=== PATIENT | male | born 1970 | race Caucasian/White ===

== ENCOUNTER → 2017-06-17 | Outpatient (CLI) | payer OTHER ==
--- NOTE | 2017-06-18 12:31 | MR ---
EXAMINATION TYPE: MR lumbar spine wo con DATE OF EXAM: 06/17/2017 12:16 PM COMPARISON: NONE HISTORY: Low back pain Multiplanar, MultiSpin echo imaging of the lumbar spine was performed. L1-L2: Normal disc appearance without desiccation. No herniation, protrusion or disc bulging. No ca nal stenosis is present. Foramina are patent bilaterally. L2-L3: Normal disc appearance without desiccation. No herniation, protrusion or disc bulging. No ca nal stenosis is present. Foramina are patent bilaterally. L3-L4: Normal disc appearance without desiccation. No herniation, protrusion or disc bulging. No ca nal stenosis is present. Foramina are patent bilaterally. L4-L5: Mild to moderate disc desiccation noted. Posterocentral broad-based disc bulge mildly effaces the ventral thecal sac. No evidence for araseli herniation. No central stenosis or lateral recess steno sis. Foramina are patent bilaterally. L5-S1: Moderate disc desiccation noted. Right paracentral disc herniation with extruded component susana suring 9.5 x 9 mm. Right lateral recess stenosis and right foraminal encroachment. Edema of the exiti ng nerve root. Lumbar segments are intact. No paraspinal masses are identified. Conus medullaris has a normal appe arance. IMPRESSION: 1. Degenerative disc disease as discussed. 2. Extruded disc herniation paracentrally and to the right at L5-S1 with right lateral recess stenosi s, right foraminal encroachment and edema of the exiting nerve root.
== END | disposition home or self-care (01) ==
LOC: RADMRIMAIN 11:39
PROVIDERS: ATTEND Physical Medicine & Rehabilitation
DX: M48.07 Spinal stenosis, lumbosacral region (principal); M51.16 Intervertebral disc disorders with radiculopathy, lumbar region
CPT/HCPCS: 72148

== ENCOUNTER → 2020-12-15 | Outpatient (CLI) | payer OTHER ==
--- NOTE | 2020-12-15 16:26 | MR ---
MRI CERVICAL SPINE: CLINICAL HISTORY: Cervical region spondylosis and radiculopathy. Neck pain for 1.5 months per patient . TECHNIQUE: Multiplanar, multisequence imaging of the cervical spine is performed without IV contrast. COMPARISON: None. FINDINGS: Sagittal images of the cervical spine show the craniocervical junction to appear within nor mal limits. The cervical and upper thoracic spinal cord is normal in course, caliber, and signal. V ertebral alignment is anatomic. The vertebral body and intravertebral disk heights are normal. The bone marrow signal intensity is within normal limits. Axial images show C2-C3 level to appear within normal limits. Axial images at C3-C4 level show focal right lobulated paracentral disc protrusion greater on the rig ht effacing bilateral anterolateral thecal sac and causing moderate right along with [id number]-lk-krbcylal left-sided neural foraminal narrowing. Axial images at C4-C5 level appear within normal limits. Axial images at C5-C6 levels with broad-based posterior disc protrusion effacing anterior thecal sac with uncovertebral facet degenerative changes causing [id number] bilateral neural foraminal jamal rowing. Axial images at C6-C7 levels from broad-based left paracentral disc protrusion effacing ventral theca l sac with uncovertebral facet degenerative changes causing moderate to severe bilateral neural migdalia inal narrowing. Axial images at C7-T1 levels appear within normal limits. IMPRESSION: Multilevel degenerative changes C3-C4, C5-C6, and C6-C7 levels as detailed above.
== END ==
LOC: RADMRIMAIN 07:48
PROVIDERS: ATTEND Orthopaedic Surgery Orthopaedic Surgery of the Spine
DX: M50.123 Cervical disc disorder at C6-C7 level with radiculopathy (principal); M47.22 Other spondylosis with radiculopathy, cervical region; M99.71 Connective tissue and disc stenosis of intervertebral foramina of cervical region
CPT/HCPCS: 72141

== ENCOUNTER → 2021-01-08 | Outpatient (CLI) | payer OTHER ==
--- NOTE | 2021-01-08 08:07 | MR ---
EXAMINATION TYPE: MR thoracic spine wo con DATE OF EXAM: 01/08/2021 COMPARISON: NONE HISTORY: Pain in T-spine TECHNIQUE: Multiplanar, multisequence imaging of thoracic spine is performed without contrast FINDINGS: Spinal cord shows normal course, caliber, and signal as it courses the thoracic spine. Blaze tebral body heights and alignment are satisfactory. Multilevel disc desiccation and interspace height s are maintained. Sagittal images show multilevel posterior disc herniation effacing the anterior the black sac with largest herniations noted at T4-T5 and T7-T8 level sagittal image 9 along with T9-T10 le gabriele sagittal image 8. Smaller posterior disc herniations are present at T3-T4 and T6-T7 level sagitta l image 9. Bone marrow signal intensity is maintained. Mild multilevel anterior spurring. Review of the axial images confirm small central disc protrusion effacing anterior thecal sac at T3- T4 level image 12 series 701. There is slightly more prominent central disc protrusion effacing the anterior thecal sac causing ant erior ventral spinal canal effacement at T4-T5 level on axial image 9. There is a larger right paracentral/foraminal disc protrusion at T5-T6 level effacing anterolateral t hecal sac and causing severe right-sided neural foraminal narrowing abutting right anterior aspect sp inal cord on image 5. There is broad-based right paracentral disc protrusion effacing anterolateral thecal sac causing spin al cord ventral surface flattening at T6-T7 level axial image 2. Axial images at T7-T8 level show right paracentral disc protrusion effacing anterolateral thecal sac on image 18 series 601. There is left paracentral disc protrusion effacing the anterolateral thecal sac at T9-T10 level axial image 11 corresponding to sagittal images. Visualized thorax and upper abdomen are otherwise unremarkable. IMPRESSION: Multilevel disc herniations and degenerative changes in the thoracic spine as detailed ab ove
== END | disposition home or self-care (01) ==
LOC: RADMRIMAIN 06:57
PROVIDERS: ATTEND Orthopaedic Surgery Orthopaedic Surgery of the Spine
DX: M51.24 Other intervertebral disc displacement, thoracic region (principal); M99.72 Connective tissue and disc stenosis of intervertebral foramina of thoracic region
CPT/HCPCS: 72146

== ENCOUNTER → 2023-05-09 | Outpatient (CLI) | payer OTHER ==
[2023-05-09 12:00] LABS: Basophils # (A) 0.16 X 10*3/uL (0.00-0.10); Basophils % (A) 2.3 %; Eosinophils # (A) 0.24 X 10*3/uL (0.04-0.35); Eosinophils % (A) 3.4 %; HCT 43.5 % (39.6-50.0); HGB 14.6 d/dL (13.0-17.0); Lymphocytes # (A) 3.23 X 10*3/uL (0.90-5.00); Lymphocytes % (A) 45.8 %; MCH 30.7 pg (27.0-32.0); MCHC 33.6 d/dL (32.0-37.0); MCV 91.6 FL (80.0-97.0); Mean Platelet Volume 9.4 FL (9.5-12.2); Monocytes # (A) 0.74 X 10*3/uL (0.20-1.00); Monocytes % (A) 10.5 %; NRBC Per 100 WBC 0 X 10*3/uL (0.00-0.01); Neutrophils # (A) 2.68 X 10*3/uL (1.80-7.70); Neutrophils % (A) 37.9 %; Platelet Count 302 X 10*3/uL (140-440); RBC 4.75 X 10*6/uL (4.40-5.60); RDW 13.6 % (11.5-14.5); WBC 7.06 X 10*3/uL (4.50-10.00)
[2023-05-09 12:18] LABS: Hepatitis C IgG Antibody Nonreactive
[2023-05-09 12:25] LABS: ALT 27 U/L (10-49); AST 27 U/L (14-35); Albumin/Globulin Ratio 1.54 Ratio (1.60-3.17); Alkaline Phosphatase 55 U/L (41-126); Blood Urea Nitrogen 15.3 mg/dL (9.0-27.0); Calcium 9.1 mg/dL (8.7-10.3); Carbon Dioxide 27.2 mmol/L (21.6-31.8); Chloride 106 mmol/L (96-109); Globulin 2.6 d/dL (1.6-3.3); Glucose 139 mg/dL (70-110); Potassium 4.8 mmol/L (3.5-5.5); Sodium 143 mmol/L (135-145); Total Bilirubin 0.3 mg/dL (0.3-1.2); Total Protein 6.6 d/dL (6.2-8.2)
[2023-05-09 12:31] LABS: Erythrocyte Sedimentation Rate 12 mm/Hr (0-20)
[2023-05-09 14:24] LABS: C Reactive Protein <0.30 mg/dL (0.00-0.80)
== END | disposition home or self-care (01) ==
LOC: LABWHC1 05-08 16:30
PROVIDERS: ATTEND Internal Medicine Rheumatology
DX: E10.59 Type 1 diabetes mellitus with other circulatory complications (principal); M06.9 Rheumatoid arthritis, unspecified; M25.50 Pain in unspecified joint
CPT/HCPCS: 36415; 80053; 82306; 82746; 82747; 82955; 83036; 84153; 84443; 85025; 85652; 86140; 86480; 86706; 86803

== ENCOUNTER → 2023-09-08 | Outpatient (CLI) | payer OTHER ==
--- NOTE | 2023-09-08 21:36 | MR ---
EXAMINATION TYPE: MR brain wo/w con DATE OF EXAM: 09/08/2023 8:28 PM CLINICAL INDICATION:Male, 53 years old with history of H91.92 hearing loss, Migraines, Left side hear ing loss, dizziness/lightheadedness COMPARISON: None TECHNIQUE: Multi planar, multi sequence imaging was performed through the brain including: T1, T2, In version recovery, susceptibility weighted imaging and gradient echo imaging and Diffusion weighted im aging. The patient was then given intravenous contrast and multi planar, T1 fat-saturation images wer e obtained. IV Contrast: 11.5 cc Gadavist FINDINGS: Mild cerebral atrophy with proportional dilation of ventricular system. Diffusion-weighted imaging s hows no evidence of restricted diffusion to suggest acute/subacute infarct. Intracranial arterial jorge w voids are maintained. Midline structures show no abnormality. Minimal scattered foci of high T2 sig nal intensity are seen within the periventricular white matter. The susceptibility weighted images do not reveal any evidence for micro-hemorrhage. After administration of gadolinium, no abnormal enhanc ement is seen. The left temporal bone and 7th and 8th cranial nerves are grossly unremarkable. The bone marrow signal is within normal limits. Paranasal sinuses and mastoid air cells: Mild scattered paranasal sinus disease. Visualized orbits: Right aphakia. The left globe is intact. IMPRESSION: 1. No evidence of intracranial mass, acute/subacute infarct, or abnormal enhancement. 2. Minimal nonspecific white matter changes, likely related to small vessel ischemic disease.
== END | disposition home or self-care (01) ==
LOC: RADMRIMAIN 19:45
PROVIDERS: ATTEND Family Medicine
DX: G93.89 Other specified disorders of brain (principal); H91.92 Unspecified hearing loss, left ear
CPT/HCPCS: 70553; A9585

== ENCOUNTER → 2023-12-04 | Outpatient (CLI) | payer OTHER ==
--- NOTE | 2023-12-04 12:54 | NM ---
EXAMINATION TYPE: NM stress cardiolite complete DATE OF EXAM: 12/04/2023 COMPARISON: NONE CLINICAL INDICATION: Male, 53 years old with history of R07.89 CHEST PAIN; TECHNIQUE: After the intravenous administration of 10.36 mCi Tc 99m Sestamibi - Rest images obtained 66 minutes post injection. The patient exercised using a HENRI protocol and 1 minute prior to peak exercise was injected with 24.8 mCi Tc 99m Sestamibi - Stress images obtained 50 minutes post inject ion. FINDINGS: Targeted heart rate (143 BPM) was achieved during performance of the study (157 BPM achieved with tot al exercise time 9 minutes). Review of stress and rest SPECT images demonstrates an area reversibilit y along the anterior mid to basal wall. However, this is not corroborated on polar maps. Gated analys is shows normal wall motion but with an estimated left ventricular ejection fraction of 45 %. TID ca lculated at 0.93, within normal limits. IMPRESSION: Consider further evaluation as the LVEF is estimated at 45% and there is a questionable area of rever sibility along the mid to basal anterior wall (though not corroborated on Polar maps).
--- NOTE | 2023-12-04 13:24 | CA ---
Exercise Nuclear Stress Test Report Name: Orlando Scherer Exam Date: 12/04/2023 10:14 Exam Location: [facility] Ht (in): 77 Wt (lb): 250 BSA: 2.46 Ordering Phys: Mary Hdez DO Referring Phys: DUYEN Technologist: Jesus Alberto Wilkerson Age: 53 Gender: M : 1970 Procedure CPT: Indications: R07.89 chest pain ICD-10 Codes: Patient History: CHEST PAIN, PALPITATIONS, HTN, DIABETES, FORMER SMOKER Medications: LOSARTAN,,, Meds past 24 hrs: Pretest Chest Pain: STRESS TEST Bam Protocol Exercise Duration (min:sec): 09:[address] Depressions (mm): Angina Score: Dawn Score: Resting HR (bpm): 65 Peak HR (bpm): 157 Resting BP (mmHg): 144 / 84 Peak BP (mmHg): 213 / 74 MPHR: 168 Target HR: 143 % MPHR: 93 METS: 10.3 Total Dose: Peak Dose: Atropine: Double Product: 34581 BP Response: Stress Termination: TARGET HR REACHED/MAX EXERTION Stress Symptoms: NO SYMPTOMS Stress Summary: ECG ANALYSIS Resting ECG: Stress ECG: CONCLUSIONS Excellent exercise tolerance Abnormal EKG in response to exercise Dr. Eulogio Robins MD (Electronically Signed) Final Date: 04 December 2023 13:24
== END | disposition home or self-care (01) ==
LOC: RADNMMAIN 08:01
PROVIDERS: ATTEND Family Medicine
DX: R94.31 Abnormal electrocardiogram [ECG] [EKG] (principal); I11.9 Hypertensive heart disease without heart failure; R07.89 Other chest pain; R53.83 Other fatigue; E11.40 Type 2 diabetes mellitus with diabetic neuropathy, unspecified; R00.2 Palpitations; Z87.891 Personal history of nicotine dependence
CPT/HCPCS: 93017; 78452; A9500

== ENCOUNTER → 2023-12-04 | Outpatient (CLI) | payer OTHER ==
--- NOTE | 2023-12-04 11:39 | CA ---
Transthoracic Echo Report Name: Orlando Scherer Age: 53 Gender: M : 1970 Exam Date: 12/04/2023 10:58 Exam Location: [facility] Ht (in): 77 Wt (lb): 250 Ordering Physician: Mary Hdez DO Attending/Referring Phys: Mary Hdez DO [employer] P[employer] Debbie Leal RCS Procedure CPT: Indications: R07.89 Atypical Chest Pain Cardiac Hx: Technical Quality: Fair Contrast 1: Total Dose (mL): Contrast 2: Total Dose (mL): MEASUREMENTS (Male / Female) Normal Values 2D ECHO LV Diastolic Diameter PLAX 5.0 cm 4.2 - 5.9 / 3.9 - 5.3 cm LV Systolic Diameter PLAX 3.6 cm IVS Diastolic Thickness 1.4 cm 0.6 - 1.0 / 0.6 - 0.9 cm LVPW Diastolic Thickness 1.1 cm 0.6 - 1.0 / 0.6 - 0.9 cm LV Relative Wall Thickness 0.5 RV Internal Dim ED PLAX 3.3 cm LVOT Diameter 2.4 cm LV Diastolic Volume MOD BP 173.7 cm??? 67 - 155 / 56 - 104 cm??? LV Systolic Volume MOD BP 85.1 cm??? 22 - 58 / 19 - 49 cm??? LV Ejection Fraction MOD BP 51.0 % >= 55 % LV Cardiac Index MOD BP 2444.8 cm???/min???m??? LV Diastolic Volume MOD 4C 182.0 cm??? LV Systolic Volume MOD 4C 92.7 cm??? LV Ejection Fraction MOD 4C 49.0 % LV Cardiac Index MOD 4C 2461.5 cm???/min???m??? LV Diastolic Length 4C 9.7 cm LV Systolic Length 4C 8.2 cm LV Diastolic Volume MOD 2C 156.4 cm??? LV Systolic Volume MOD 2C 76.1 cm??? LV Ejection Fraction MOD 2C 51.3 % LV Cardiac Index MOD 2C 2215.1 cm???/min???m??? LV Diastolic Length 2C 9.1 cm LV Systolic Length 2C 7.9 cm LA Volume 59.2 cm??? 18 - 58 / 22 - 52 cm??? LA Volume Index 23.6 cm???/m??? 16 - 28 cm???/m??? Ascending Aorta Diameter 3.3 cm DOPPLER AV Peak Velocity 129.9 cm/s AV Peak Gradient 6.8 mmHg AV Mean Velocity 86.4 cm/s AV Mean Gradient 3.4 mmHg AV Velocity Time Integral 24.5 cm LVOT Peak Velocity 94.4 cm/s LVOT Peak Gradient 3.6 mmHg LVOT Velocity Time Integral 20.5 cm LVOT Stroke Volume 93.4 cm??? LVOT Stroke Volume Index 38.0 ml/m??? LVOT Cardiac Index 2575.3 cm???/min???m??? AV Area Cont Eq vti 3.8 cm??? AV Area Cont Eq pk 3.3 cm??? Mitral E Point Velocity 53.8 cm/s Mitral A Point Velocity 53.1 cm/s Mitral E to A Ratio 1.0 MV Deceleration Time 222.7 ms MV E' Velocity 6.6 cm/s Mitral E to MV E' Ratio 8.1 PV Peak Velocity 86.1 cm/s PV Peak Gradient 3.0 mmHg FINDINGS Left Ventricle Left ventricular ejection fraction is estimated at 50-55 %. Mildly increased septal wall thickness. Mildly increased left ventricular diastolic volume. No obvious regional wall motion abnormalities. Right Ventricle Borderline enlarged right ventricular dilatation. Unable to determine right ventricular systolic function. Right Atrium Normal right atrial size. Left Atrium Mildly increased left atrial volume. Mitral Valve Structurally normal mitral valve. No mitral stenosis, regurgitation or prolapse. Aortic Valve Trileaflet aortic valve. No aortic stenosis. No aortic regurgitation. Tricuspid Valve Structurally normal tricuspid valve. No tricuspid stenosis. Trace tricuspid regurgitation. Pulmonic Valve Structurally normal pulmonic valve. Trace pulmonic regurgitation. No pulmonic stenosis. Pericardium No pericardial effusion. Aorta Normal size aortic root and proximal ascending aorta. CONCLUSIONS Low-normal LV systolic function was EF at 50% Previewed by: Dr. Eulogio Robins MD (Electronically Signed) Final Date: 04 December 2023 11:38
== END | disposition home or self-care (01) ==
LOC: RADECHMAIN 08:06
PROVIDERS: ATTEND Family Medicine
DX: R07.89 Other chest pain (principal)
CPT/HCPCS: 93306

== ENCOUNTER 2024-01-01 07:24 | Day surgery (SDC) | payer OTHER ==
[2023-12-28 12:22] VITALS: BMI 29.5
[~2024-01-01 07:24] MED LIST: ALPRAZolam 0.25 MG TAB PO PRN; ASPIRIN 325 MG TAB PO STA; ATORVASTATIN 80 MG TAB PO STA; HEPARIN SODIUM,PORCINE (1 ML) 2,500 UNIT in SODIUM CHLORIDE 0.9% 250 ML IRRIGATION PRN; HEPARIN SODIUM,PORCINE 10,000 UNIT in SODIUM CHLORIDE 0.9% 1,000 ML IRRIGATION PRN; NITROGLYCERIN SL TABS 0.4 MG TAB SUBLINGUAL PRN; SODIUM CHLORIDE 0.9% 1,000 ML in EMPTY BAG 1 BAG IV SCH
[2024-01-01] MEDS: SODIUM CHLORIDE 0.9% 1,000 ML IV ONE (07:30)
[2024-01-01 07:51] LABS: Glucose,Whole Blood 101 mg/dL (70-110)
[2024-01-01] MEDS: ALPRAZolam 0.5 MG TAB PO PRN (07:56)
[2024-01-01 08:01] LABS: Basophils # (A) 0.1 k/uL (0-0.2); Basophils % (A) 2 %; Eosinophils # (A) 0.2 k/uL (0-0.7); Eosinophils % (A) 3 %; HCT 45.5 % (39.0-53.0); HGB 15.6 gm/dL (13.0-17.5); Lymphocytes # (A) 2.5 k/uL (1.0-4.8); Lymphocytes % (A) 33 %; MCH 31.9 pg (25.0-35.0); MCHC 34.2 g/dL (31.0-37.0); MCV 93.1 fL (80.0-100.0); Mean Platelet Volume 6.8; Monocytes # (A) 0.7 k/uL (0-1.0); Monocytes % (A) 9 %; Neutrophils # (A) 3.9 k/uL (1.3-7.7); Neutrophils % (A) 51 %; Platelet Count 312 k/uL (150-450); RBC 4.89 m/uL (4.30-5.90); RDW 13.2 % (11.5-15.5); WBC 7.7 k/uL (3.8-10.6)
[2024-01-01 08:02] VITALS: TEMP 98
[2024-01-01 08:28] LABS: African American GFR (CKD) >90 (>60 ml/min/1.73 sqM); Anion Gap 10 mmol/L; Blood Urea Nitrogen 13 mg/dL (9-20); Calcium 8.9 mg/dL (8.4-10.2); Carbon Dioxide 23 mmol/L (22-30); Chloride 105 mmol/L (98-107); Glucose 106 mg/dL (74-99); Non-African American GFR(CKD) >90 (>60 ml/min/1.73 sqM); Potassium 3.9 mmol/L (3.5-5.1); Sodium 138 mmol/L (137-145)
[2024-01-01] MEDS ORDERED: HEPARIN SODIUM 1,000 UN/ML (10ML VL) ONE (08:42)
[2024-01-01] MEDS ORDERED: VERAPAMIL 2.5 MG/ML 2 ML AMP ONE (08:42)
[2024-01-01] MEDS ORDERED: LIDOCAINE 1% INJ 10MG/ML (20 ML MDV) ONE (08:42)
[2024-01-01] MEDS ORDERED: fentaNYL (PF) 50 MCG/ML 2 ML AMP ONE (08:58)
[2024-01-01] MEDS: MIDAZOLAM 2 MG/2 ML VIAL IVP ONE (09:05)
[2024-01-01] MEDS: fentaNYL (PF) 50 MCG/ML 2 ML AMP IVP ONE (09:05)
[2024-01-01] MEDS: LIDOCAINE 1% INJ 10MG/ML (20 ML MDV) SQ ONE (09:07)
[2024-01-01] MEDS: VERAPAMIL SYRINGE (5 MG/10 ML) INTRAARTER ONE (09:10)
[2024-01-01] MEDS: HEPARIN SODIUM 1,000 UN/ML (10ML VL) IVP ONE (09:16)
[2024-01-01] MEDS: IOPAMIDOL-370 100ML BTL INJ ONE (09:24)
[2024-01-01] MEDS ORDERED: RX INFO: IV CONTRAST WAS GIVEN 1 EACH MISC MISCELLANE PRN (09:31)
--- NOTE | 2024-01-01 09:31 | P.CARDCATH ---
Date of Procedure: 01/01/24 Description of Procedure: DIAGNOSTIC CORONARY ANGIOGRAPHY and LEFT HEART CATH REPORT PROCEDURES PERFORMED: Left heart catheterization Selective coronary angiography Moderate conscious sedation 15 mins [Ultrasound assisted] Right radial access INDICATION: [Unstable angina] 53-year-old patient presented to cardiology clinic because of substernal chest pain. On initial evaluation he was noticed to have elevated blood pressure for which we started him on antihypertensives. We offered him noninvasive testing with stress test and CT angiogram. Patient chose for CT angiogram to be done and be scheduled at [facility]. Patient then called the clinic again because of recurrent substernal chest pain and he is very anxious and he would like to have a heart cath instead of CT angiogram. Because of his ongoing substernal chest pain which was 3-4 times per day, had typical description getting worse with activity and crescendo nature of chest pain, he was scheduled for heart catheterization on outpatient basis. CONSENT: I have explained the procedural steps of above-mentioned procedures in layman's terms to the patient. I discussed the risks (including but not limited to stroke, emergent vascular or cardiac surgery or ), benefits and alternative therapies for the above-mentioned procedure. I discussed the risks of sedation/analgesia and blood product administration (if indicated). The patient has indicated understanding and acceptance of these risks. Conscious Sedation: Patient's ECG, heart rate, blood pressure, pulse oximetry were monitored throughout the duration of procedure under my direct supervision. 3 mg Versed and 75 mg Fentanyl were used for induction of moderate conscious sedation. Total duration of moderate concious sedation 15 minutes. PROCEDURE: After explaining the risks, benefits and alternatives of the above mentioned procedures in detail to the patient, informed consent was obtained. Patient was taken to the catheterization lab, prepped and draped in usual sterile fashion using universal precuations. Barbow and ekta test were performed to confirm adequate perfusion to fingers. Ultrasound was used to identify the radial artery. 1% lidocaine was infiltrated over the right radial artery. A 6-[place] Ze[place]ander sheath was placed and secured in the [facility] radial artery using modified Seldinger technique. The sheath was flushed and 5 mg verapamil was administered intra-arterially. J tipped wire was advanced under fluoroscopic guidance. Once the wire tip reached aortic root 6000 units of IV heparin was given. Over the wire JR4 diagnostic catheter was advanced. The wire in place the catheter was manipulated to cross the aortic valve and entered into LV under fluoroscopy guidance. The wire was removed and the catheter was flushed. LV pressures were obtained and pullback was performed under fluoroscopy. Catheter was manipulated to selectively engage the right coronary ostium. Right coronary angiography was performed in different angiographic projections. The JR4 diagnostic catheter was exchanged for a JL 4 diagnostic catheter over the J-wire. The wire was removed, catheter was flushed and manipulated under fluoroscopy to selectively engaged the left coronary ostium. Left coronary angioplasty was performed in different angiographic projections. Catheter was removed over the wire. Radial sheath was flushed. The right radial sheath was removed and a TR band was placed with excellent patent hemostasis was achieved. The patient tolerated the procedure well. Patient was transported back to the post catheterization holding area in stable condition. Angiographic images were reviewed in detail. HEMODYNAMICS: Aortic Pressure: 110/60 mmHg. LV pressure: 110/3 mmHg. LVEDP 15 mmHg. There was no significant gradient across the aortic valve. SELECTIVE CORONARY ARTERIOGRAPHY: LEFT MAIN: The left main is a large caliber vessel which bifurcates into the LAD and circumflex. Left main appears angiographically normal. LEFT ANTERIOR DESCENDING CORONARY ARTERY: LAD is a large caliber vessel which wraps around to the apex. Proximal LAD appears angiographically normal. Mid LAD appears angiographically normal. Distal LAD appears angiographically normal. It gives rise to 2 diagonal branches which appears angiographically normal. LEFT CIRCUMFLEX CORONARY ARTERY: It is nondominant vessel. Left circumflex is a moderate caliber vessel. It appears angiographically normal. It gives rise to a very small OM 1 and medium size OM 2 which appears angiographically normal. RIGHT CORONARY ARTERY: Dominant vessel. The right coronary artery is a large caliber vessel which gives PDA and PLV branch. Mid RCA has a 40-50% eccentric disease. Distal RCA appears to have mild luminal irregularities. PDA and PL branches appears angiographically normal. IMPRESSION: Moderate nonobstructive disease in RCA Mild luminal irregularities in other coronary arteries Normal left sided filling pressures Essential hypertension PLAN: Aggressive risk factor modification per most recent ACC/AHA guidelines. 150 cc fluids for 3 hours Discharge home in 3 hours Follow-up in the office in 1-2 weeks. Performing Physician Ji Cordova MD, FACC, RPVI Thank you for allowing [facility] to participate in this patient's care. Feel free to reach out in case of any followup questions.
[2024-01-01 15:47] VITALS: BP 119/64; PULSE 50; RESP 16
== END 2024-01-01 13:32 | disposition home or self-care (01) ==
LOC: CATHCVL 07:24
PROVIDERS: ATTEND Student in an Organized Health Care Education/Training Program
DX: I25.110 Atherosclerotic heart disease of native coronary artery with unstable angina pectoris (principal); E11.9 Type 2 diabetes mellitus without complications; I10 Essential (primary) hypertension; F17.220 Nicotine dependence, chewing tobacco, uncomplicated; Z79.899 Other long term (current) drug therapy
CPT/HCPCS: 93458; 76937; 80048; 85025; C1769 ×2; C1894; J2250; J2001; J3010; J1644; Q9967

== ENCOUNTER 2024-10-18 17:51 | Emergency (ER) | payer OTHER ==
--- NOTE | 2024-10-18 19:09 | ED ---
Chest Pain HPI - General Source: patient, RN notes reviewed Mode of arrival: ambulatory Limitations: no limitations <Marco A Cerna - Last Filed: 10/18/24 19:07> <Rebecca Lugo - Last Filed: 10/19/24 04:24> - General Stated Complaint: upper back pain Time Seen by Provider: 10/18/24 18:04 - History of Present Illness Initial Comments: This is a 54-year-old male complaining of right upper back pain radiating to right chest x 2 weeks. Patient describes pain as constant and sharp (9/10). Patient states he was seen in urgent care and sent to ER to rule out possible PE. Denies personal history of blood clots or PE. Denies fever, chills, dyspnea/SOB, dizziness, hemoptysis. (Marco A Cerna) 54-year-old male presents to the emergency department for evaluation of back pain radiating to his chest. He states that he initially started experiencing pain in his neck and has extended into his back. He notes that over the past day the pain has moved to the right side of his chest and occasionally has discomfort in his right arm. He denies recent fever, chills. Denies shortness of breath. He does report that he was recently ill and had been on 2 courses of antibiotics. Past medical history includes hypertension, hyperlipidemia. (Rebecca Lugo) - Related Data Home Medications Medication Instructions Recorded Confirmed Aspirin 81 mg PO DAILY 12/28/23 01/01/24 Ibuprofen [Motrin] 800 mg PO Q8H PRN 12/28/23 01/01/24 Insulin Aspart (For Pump) [NovoLOG 0.01 unit SQ-PUMP CONTINUOUS 12/28/23 12/28/23 (For Pump)] Losartan/Hydrochlorothiazide 1 tab PO DAILY 12/28/23 01/01/24 [Losartan-Hctz 100-12.5 mg Tab] Multivitamins, Thera [Multivitamin 1 tab PO DAILY 12/28/23 12/28/23 (formulary)] Rosuvastatin [Crestor] 10 mg PO DAILY 12/28/23 01/01/24 Vitamin B Complex 1 each PO DAILY 12/28/23 12/28/23 amLODIPine [Norvasc] 5 mg PO DAILY 12/28/23 01/01/24 metHOTREXate sodium [Methotrexate] 15 mg PO WE 12/28/23 01/01/24 traMADol HCL 50 mg PO Q8H PRN 12/28/23 01/01/24 Allergies Allergy/AdvReac Type Severity Reaction Status Date / Time No Known Allergies Allergy Verified 10/18/24 19:02 Review of Systems ROS Other: All systems not noted in ROS Statement are negative. <Marco A Cerna - Last Filed: 10/18/24 19:07> ROS Other: All systems not noted in ROS Statement are negative. <Rebecca Lugo - Last Filed: 10/19/24 04:24> ROS Statement: Those systems with pertinent positive or pertinent negative responses have been documented in the HPI. Past Medical History Past Medical History: Diabetes Mellitus, Hypertension, Rheumatoid Arthritis (RA) Additional Past Medical History / Comment(s): chest pressure,Sob with exertion,can feel blood pressure when high was running 170s/100s,floaters were in rt eye,averages approx 5 hours per night sleep,Covid infection 2019 or 2020 initially, has had covid infection x3,red rash to buttocks intermittently since covid,had a bile leak after gallbladder removed-was on antibiotics for 3 weeks. History of Any Multi-Drug Resistant Organisms: None Reported Past Surgical History: Back Surgery, Cholecystectomy, Hernia Repair Additional Past Surgical History / Comment(s): inguinal hernia,nasal surgery,rt cataract after steroid use,lower michael surgery x2,EGD Past Anesthesia/Blood Transfusion Reactions: No Reported Reaction Additional Past Anesthesia/Blood Transfusion Reaction / Comment(s): no hx blood transfusion. states "takes more anesthesia-woke up during middle of EGD and woke up before being tube being removed out of my throat with gallbladder surgery" Smoking Status: Former smoker - Past Family History Mother Family Medical History: No Reported History Father Family Medical History: Hypertension Sister(s) Family Medical History: Hypertension Brother(s) Family Medical History: Hypertension <Marco A Cerna - Last Filed: 10/18/24 19:07> General Exam <Marco A Cerna - Last Filed: 10/18/24 19:07> Limitations: no limitations General appearance: alert, in no apparent distress Head exam: Present: atraumatic, normocephalic, normal inspection Eye exam: Present: normal appearance, PERRL, EOMI. Absent: scleral icterus, conjunctival injection, periorbital swelling ENT exam: Present: normal exam, mucous membranes moist Neck exam: Present: normal inspection. Absent: tenderness, meningismus, lymphadenopathy Respiratory exam: Present: normal lung sounds bilaterally. Absent: respiratory distress, wheezes, rales, rhonchi, stridor Cardiovascular Exam: Present: regular rate, normal rhythm, normal heart sounds. Absent: systolic murmur, diastolic murmur, rubs, gallop, clicks GI/Abdominal exam: Present: soft. Absent: distended, tenderness, guarding, rebound, rigid Extremities exam: Present: normal inspection, full ROM, normal capillary refill. Absent: tenderness, pedal edema, joint swelling, calf tenderness Back exam: Present: full ROM, tenderness (Right upper back medial to the right scapula) Neurological exam: Present: alert, oriented X3 Psychiatric exam: Present: normal affect, normal mood Skin exam: Present: warm, dry, intact, normal color. Absent: rash <Rebecca Lugo - Last Filed: 10/19/24 04:24> - General Exam Comments Initial Comments: Visual Physical Exam Vital signs reviewed General: Well-appearing, nontoxic, no acute distress. Head: Normocephalic, atraumatic Eyes: PERRLA, EOMI ENT: Airway patent Chest: Nonlabored breathing Skin: No visual rash, normal skin tone Neuro: Alert and oriented 3 Musculoskeletal: No gross abnormalities (Marco A Cerna) Course Vital Signs 10/18/24 10/18/24 10/19/24 19:03 22:44 01:46 Temperature 98.2 F 97.8 F Pulse Rate 73 68 84 Respiratory 18 16 16 Rate Blood Pressure 146/94 170/87 153/92 O2 Sat by Pulse 98 98 98 Oximetry Chest Pain MDM <Marco A Cerna - Last Filed: 10/18/24 19:07> <Rebecca Lugo - Last Filed: 10/19/24 04:24> - MDM I completed the quick note portion of this chart signed COLE Ramos (Marco A Cerna) Was pt. sent in by a medical professional or institution ([facility], OPTOMETRIST/PRACTICE OWNER, urgent care, hospital, or long term...) When possible be specific @ -[No] Did you speak to anyone other than the patient for history (EMS, parent, family, police, friend...)? What history was obtained from this source @ -[No] Did you review nursing and triage notes (agree or disagree)? Why? @ -[I reviewed and agree with nursing and triage notes] Were old charts reviewed (outside hosp., previous admission, EMS record, old EKG, old radiological studies, urgent care reports/EKG's, long term records)? Report findings @ -[No old charts were reviewed] Differential Diagnosis (chest pain, altered mental status, abdominal pain women, abdominal pain men, vaginal bleeding, weakness, fever, dyspnea, syncope, headache, dizziness, GI bleed, back pain, seizure, CVA, palpatations, mental health, musculoskeletal)? @ -[not applicable] EKG interpreted by me (3pts min.). @ -[EKG at 1924 shows sinus rhythm rate 64, SC 135, QRS 94, QTQTc 4024 12] X-rays interpreted by me (1pt min.). @ -[None done] CT interpreted by me (1pt min.). @ -[None done] U/S interpreted by me (1pt. min.). @ -[None done] What testing was considered but not performed or refused? (CT, X-rays, U/S, labs)? Why? @ -[None] What meds were considered but not given or refused? Why? @ -[None] Did you discuss the management of the patient with other professionals (professionals i.e. , PA, OPTOMETRIST/PRACTICE OWNER, lab, RT, psych nurse, social media designer, senior product development manager, teacher, correctional officer sergeant, case technician)? Give summary @ -[No] Was smoking cessation discussed for >3mins.? @ -[No] Was critical care preformed (if so, how long)? @ -[No] Were there social determinants of health that impacted care today? How? (Homelessness, low income, unemployed, alcoholism, drug addiction, transportation, low edu. Level, literacy, decrease access to med. care, penitentiary, rehab)? @ -[No] Was there de-escalation of care discussed even if they declined (Discuss DNR or withdrawal of care, Hospice)? DNR status @ -[No] What co-morbidities impacted this encounter? (DM, HTN, Smoking, COPD, CAD, Cancer, CVA, ARF, Chemo, Hep., AIDS, mental health diagnosis, sleep apnea, morbid obesity)? @ -[None] Was patient admitted / discharged? Hospital course, mention meds given and route, prescriptions, significant lab abnormalities, going to OR and other pertinent info. @ -[hospital course] Undiagnosed new problem with uncertain prognosis? @ -[No] Drug Therapy requiring intensive monitoring for toxicity (Heparin, Nitro, Insulin, Cardizem)? @ -[No] Were any procedures done? @ -[No] Diagnosis/symptom? @ -[default] Acute, or Chronic, or Acute on Chronic? @ -[default] Uncomplicated (without systemic symptoms) or Complicated (systemic symptoms)? @ -[default] Side effects of treatment? @ -[No] Exacerbation, Progression, or Severe Exacerbation? @ -[No] Poses a threat to life or bodily function? How? (Chest pain, [place], [place], pneumonia, PE, COPD, DKA, ARF, appy, cholecystitis, CVA, Diverticulitis, Homicidal, Suicidal, threat to staff... and all critical care pts) @ -[No] (Reebcca Lugo) Disposition <Marco A Cerna - Last Filed: 10/18/24 19:07> Is patient prescribed a controlled substance at d/c from ED?: No <Rebecca Lugo - Last Filed: 10/19/24 04:24> Clinical Impression: Back pain Disposition: HOME SELF-CARE Condition: Stable Instructions (If sedation given, give patient instructions): Back Pain (ED) Additional Instructions: Please follow up with your primary care provider. Return to the emergency department for new or worsening symptoms. Referrals: Mary Hdez DO [Primary Care Provider] - 1-2 days
[2024-10-18 20:11] LABS: Basophils # (A) 0.1 k/uL (0-0.2); Basophils % (A) 1 %; Eosinophils # (A) 0.3 k/uL (0-0.7); Eosinophils % (A) 3 %; HGB 15.7 gm/dL (13.0-17.5); Lymphocytes % (A) 36 %; MCH 32.5 pg (25.0-35.0); MCHC 34.8 g/dL (31.0-37.0); MCV 93.2 fL (80.0-100.0); Mean Platelet Volume 6.8; Monocytes # (A) 0.6 k/uL (0-1.0); Monocytes % (A) 7 %; Neutrophils # (A) 4.2 k/uL (1.3-7.7); Neutrophils % (A) 51 %; Platelet Count 312 k/uL (150-450); RBC 4.82 m/uL (4.30-5.90); RDW 12.8 % (11.5-15.5); WBC 8.2 k/uL (3.8-10.6)
[2024-10-18 20:46] LABS: ALT 36 U/L (4-49); AST 34 U/L (17-59); African American GFR (CKD) >90 (>60 ml/min/1.73 sqM); Albumin 4.2 g/dL (3.5-5.0); Alkaline Phosphatase 43 U/L (38-126); Anion Gap 7 mmol/L; Blood Urea Nitrogen 13 mg/dL (9-20); Carbon Dioxide 29 mmol/L (22-30); Chloride 101 mmol/L (98-107); Glucose 150 mg/dL (74-99); Non-African American GFR(CKD) >90 (>60 ml/min/1.73 sqM); Potassium 4.2 mmol/L (3.5-5.1); Sodium 137 mmol/L (137-145); Total Bilirubin 0.5 mg/dL (0.2-1.3); Total Protein 7.1 g/dL (6.3-8.2)
[2024-10-18 21:17] LABS: Partial Thromboplastin Time 24.7 sec (22.0-30.0); Prothrombin Time 11.3 sec (10.0-12.5)
--- NOTE | 2024-10-18 21:55 | XR ---
EXAMINATION TYPE: XR chest 2V DATE OF EXAM: 10/18/2024 8:15 PM COMPARISON: 06/14/2013 CLINICAL INDICATION: Male, 54 years old with history of Chest Pain, TECHNIQUE: XR chest 2V view(s) obtained. FINDINGS: The heart size is normal. The pulmonary vasculature is normal. The lungs are clear. IMPRESSION: 1. No acute pulmonary process. [facility], Workstation: [facility], 10/18/2024 9:53 PM
[2024-10-18] MEDS: KETOROLAC 15 MG/ML 1 ML VIAL IVP STA (22:02)
[2024-10-18] MEDS: HYDROmorphone 0.5 MG/0.5 ML SYRINGE IVP STA (22:39)
[2024-10-18 22:50] VITALS: RESP 16
--- NOTE | 2024-10-19 00:51 | CT ---
EXAM: CT Angiography Chest Without and With Intravenous Contrast CLINICAL HISTORY: Back/chest pain TECHNIQUE: Axial computed tomographic angiography images of the chest without and with intravenous contrast using aortic dissection protocol. CTDI is 48.9 mGy and DLP is 1846.6 mGy-cm. This CT exam was performed using one or more of the following dose reduction techniques: automated exposure control, adjustment of the mA and/or kV according to patient size, and/or use of iterative reconstruction technique. MIP reconstructed images were created and reviewed. COMPARISON: No relevant prior studies available. FINDINGS: Aorta: Motion artifact in the ascending thoracic aorta. No thoracic aortic dissection is identified. No thoracic aortic aneurysm. No intimal wall abnormality identified on the precontrast images. No acute periaortic abnormality. Great vessels of aortic arch: No acute findings. No dissection. No arterial occlusion or significant stenosis. Lungs: The lungs are well aerated without focal consolidation. No mass. Pleural space: Unremarkable. No significant effusion. No pneumothorax. Heart: The cardiac chambers are normal in caliber. Mild coronary artery calcification, most prominent in the proximal to mid RCA. No pericardial effusion. Bones/joints: The thoracic vertebral bodies are intact without acute traumatic injury. No abnormal alignment. Chronic anterior wedging involving T7 and T8 levels with slightly accentuated kyphosis. The ribs, sternum and included segments of the shoulders are unremarkable. Soft tissues: Unremarkable. Lymph nodes: Unremarkable. No enlarged lymph nodes. IMPRESSION: 1. Motion artifact in the ascending thoracic aorta. No thoracic aortic dissection is identified. No thoracic aortic aneurysm. 2. The lungs are well aerated without focal consolidation. EXAM: CT Angiography Abdomen and Pelvis Without and With Intravenous Contrast CLINICAL HISTORY: Back/chest pain TECHNIQUE: Axial computed tomographic angiography images of the abdomen and pelvis without and with intravenous contrast. CTDI is 24.7 mGy and DLP is 1826. 6 mGy-cm. This CT exam was performed using one or more of the following dose reduction techniques: automated exposure control, adjustment of the mA and/or kV according to patient size, and/or use of iterative reconstruction technique. MIP reconstructed images were created and reviewed. COMPARISON: No relevant prior studies available. FINDINGS: VASCULATURE: Aorta: No abdominal aortic aneurysm or dissection. Precontrast imaging of the aorta demonstrates only minimal calcification. No intimal wall abnormality. No periaortic abnormality. 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 Poststenotic dilatation of the proximal to mid celiac artery. The celiac artery is otherwise patent. The superior mesenteric artery is widely patent. The DAYDAY is widely patent. Renal arteries: No acute findings. No occlusion or significant stenosis. Iliac arteries: No acute findings. No occlusion or significant stenosis. Lung bases: For findings regarding the lung bases, please see the CT report of the chest performed concurrently. No consolidation. ABDOMEN: Liver: Unremarkable. No mass. Gallbladder and bile ducts: Cholecystectomy. No ductal dilation. Pancreas: Unremarkable. No ductal dilation. No mass. Spleen: Unremarkable. No splenomegaly. Adrenals: Unremarkable. No mass. Kidneys and ureters: Subcentimeter nonobstructive nephrolithiasis in the inferior pole of the left kidney. No nephrolithiasis noted on the right. No hydronephrosis or definite ureteral stones. No pyelonephritis. Stomach and bowel: No bowel obstruction. No definite asymmetric bowel mucosal abnormality. Moderate stool burden primarily in the ascending and transverse colon. PELVIS: Appendix: Normal retrocecal appendix. Bladder: Unremarkable. No stones. No mass. Reproductive: Unremarkable as visualized. ABDOMEN and PELVIS: Intraperitoneal space: Unremarkable. No significant fluid collection. No free air. Bones/joints: 3 mm retrolisthesis involving L5 on S1 with severe degenerative changes at L5-S1 and vacuum phenomenon. A component of osseous neural foraminal encroachment is noted. No acute osseous abnormality. No dislocation. Soft tissues: Unremarkable. Lymph nodes: Unremarkable. No enlarged lymph nodes. IMPRESSION: 1. No abdominal aortic aneurysm or dissection. 2. 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 The clinical significance of this finding is indeterminate as the SMA and DAYDAY are widely patent.
[2024-10-19 01:49] VITALS: BP 153/92; PULSE 84; TEMP 97.8
== END 2024-10-19 01:53 | disposition home or self-care (01) ==
LOC: EC 17:51
DX: M54.9 Dorsalgia, unspecified (principal); Z87.891 Personal history of nicotine dependence
CPT/HCPCS: 36415; 93005; 85379; 80053; 83735; 84484; 85025; 85610; 85730; 71046; 71275; 74174; 99284; 96374; 96375; J1885; J1171; Q9967